=== PATIENT | female | born 1960 | race Caucasian/White ===

== ENCOUNTER 2019-07-04 17:57 | Emergency (ER) | payer OTHER ==
[~2019-07-04] VITALS: Ht 154.9 cm; Wt 77.6 kg
[2019-07-04 18:51] VITALS: BP 122/76
[2019-07-04] MEDS ORDERED: IBUPROFEN 600 MG TAB PO ONE (19:05)
--- NOTE | 2019-07-04 19:05 | NUR ---
59 Y/O FEMALE C/O HEAD, NECK, AND RT SHOULDER PAIN S/P FALLING DOWN 10 STAIRS AT HOME WHILE CARRYING A BLANKET. NO DEFORMITIES NOTED TO RT SHOULDER, HEAD OR NECK. +CMS. PT STATES SHE HIT HER HEAD 2X, DENIES LOC. STATES DIZZINESS AND NAUSEA THAT STARTED X 1 HR AGO. DENIES VOMITING. RR EVEN AND UNLABORED. PT SITTING UPRIGHT IN CHC WITH FAMILY MEMBER. VSS. MEDHX: DENIES ALLERGIES: NKA
--- NOTE | 2019-07-04 19:12 | NUR ---
PT TO RADIOLOGY VIA WHEELCHAIR.
[2019-07-04 19:40] VITALS: BP 122/76
--- NOTE | 2019-07-04 19:40 | NUR ---
Patient discharged with v/s stable. Written and verbal after care instructions given and explained. Patient alert, oriented and verbalized understanding of instructions. Ambulatory with steady gait. All questions addressed prior to discharge. ID band removed. Patient advised to follow up with PMD. Rx of NAPROSYN WAS given. Patient educated on indication of medication including possible reaction and side effects. Opportunity to ask questions provided and answered. PT WAS D/C BY DR. WEBB
== END 2019-07-04 19:40 | disposition home or self-care (01) ==
LOC: MED 17:57
DX: S13.4XXA Sprain of ligaments of cervical spine, initial encounter (principal); S09.90XA Unspecified injury of head, initial encounter; M54.6 Pain in thoracic spine; E07.9 Disorder of thyroid, unspecified; W10.9XXA Fall (on) (from) unspecified stairs and steps, initial encounter; Y93.89 Activity, other specified; Y92.098 Other place in other non-institutional residence as the place of occurrence of the external cause; Y99.8 Other external cause status
CPT/HCPCS: 70450; 72050; 73030; 99284

== ENCOUNTER 2021-12-22 13:04 | Emergency (ER) | payer OTHER ==
[~2021-12-22] VITALS: Ht 154.9 cm; Wt 75.7 kg
[2021-12-22 13:22] VITALS: BP 118/77
[2021-12-22] MEDS ORDERED: KETOROLAC 60 MG/2 ML VIAL IM ONE (13:40)
[2021-12-22] MEDS ORDERED: LIDOCAINE 2% 1000 MG/50 ML VIAL INJ ONE (14:35)
[2021-12-22] MEDS ORDERED: MEPERIDINE 25 MG/ML SYR IVP ONE (15:00)
[2021-12-22] MEDS ORDERED: MORPHINE SULFATE 4 MG/ML SYR ONE (15:09)
[2021-12-22] MEDS ORDERED: ETHYL CHLORIDE 105 ML SPR TP ONE (15:30)
[2021-12-22] MEDS ORDERED: MORPHINE SULFATE 4 MG/ML SYR IVP ONE (15:45)
[2021-12-22 17:43] LABS: APPEARANCE,SPUN,BODY FLUID CLEAR (CLEAR); APPEARANCE,UNSPUN,BODY FLUID BLOODY (CLEAR); COLOR,BODY FLUID RED (LT YELLOW); SPECIMENTYPE,BODY FLUID SYNOVIAL; TOTAL VOLUME,BODY FLUID 10 mL; WBC, BODY FLUID 46 /cu. mm.
[2021-12-22 17:45] LABS: RBC, BODY FLUID 9000 /cu. mm.
[2021-12-22] MEDS ORDERED: oxyCODONE/APAP 5/325 MG 1 TAB TAB PO ONE (18:05)
[2021-12-22] MEDS ORDERED: oxyCODONE/APAP 5/325 MG 1 TAB TAB ONE (18:08)
[2021-12-22 18:31] LABS: POLYNUCLEAR, BODY FLUID 92 %
[2021-12-22] MEDS ORDERED: TRAM50TA3 PO (18:49)
[2021-12-22] MEDS ORDERED: IBUP-2218 PO ×2 (18:52→20:09)
[2021-12-22 19:09] VITALS: BP 118/77
[2021-12-22] MEDS ORDERED: TRAM50TA1 PO (20:07)
[2021-12-24 19:56] LABS: GLUCOSE,BODY FLUID 70 mg/dL
== END 2021-12-22 19:09 | disposition home or self-care (01) ==
LOC: MED 13:04
DX: S80.01XA Contusion of right knee, initial encounter (principal); M19.90 Unspecified osteoarthritis, unspecified site; X58.XXXA Exposure to other specified factors, initial encounter; Y93.89 Activity, other specified; Y92.89 Other specified places as the place of occurrence of the external cause; Y99.8 Other external cause status
CPT/HCPCS: 20610; 36415; 73562; 82945; 84157; 87070; 87205; 89051; 96372; 96374; 99284; J1885; J2001; J2175; J2270; 87075